=== PATIENT | male | born 1945 | race Two or more races ===

== ENCOUNTER 2017-03-27 16:57 | Observation (INO) | payer SELFPAY ==
[~2017-03-27] VITALS: Ht 152.4 cm; Wt 54.4 kg
[2017-03-27] MEDS ORDERED: SODIUM CHLORIDE 0.9% 1,000 ML IVB ONE (17:27)
[2017-03-27 18:41] LABS: Basophils # (auto) 0.1 uL; Basophils % (auto) 1.1 % (0.0-2.0); Eosinophils # (auto) 0 uL; Hematocrit 29.9 % (41.0-53.0); Hemoglobin 10.2 g/dL (13.5-17.5); Lymphocytes # (auto) 1.4 uL; Lymphocytes % (auto) 19.1 % (10.0-50.0); Mean Corpuscular Hemoglobin 33.1 pg (28.0-32.0); Mean Corpuscular Hgb Conc. 34.3 g/dL (32.0-36.0); Mean Corpuscular Volume 96.6 fL (80.0-100.0); Monocytes # (auto) 0.6 uL; Monocytes % (auto) 7.4 % (0.0-12.0); Neutrophils # (auto) 5.5 uL; Neutrophils % (auto) 72.4 % (37.0-80.0); Platelet Count (auto) 282 10^3/uL (140-450); Red Blood Cells 3.09 10^6/uL (4.5-5.90); White Blood Cell 7.6 10^3/uL (4.4-10.8)
[2017-03-27 19:01] LABS: Alanine Aminotransferase 14 U/L (16-61); Albumin 2.8 g/dL (3.4-5.0); Alkaline Phosphatase 122 U/L (45-117); Anion Gap 9 (5-15); Aspartate Aminotransferase 15 U/L (15-37); BUN/Creatinine Ratio 17.4; Bilirubin, Total 0.2 mg/dL (0.2-1.0); Blood Alcohol < 3.0 mg/dL (0-5); Blood Urea Nitrogen 26 mg/dL (7-18); Calcium 8.9 mg/dL (8.5-10.1); Carbon Dioxide 21 mmol/L (21-32); Chloride 110 mmol/L (98-107); GFR African American 59 mL/min; GFR Non-African American 49 mL/min; Glucose 175 mg/dL (74-106); Magnesium 1.7 mg/dL (1.6-2.6); Partial Thromboplastin Time 29.3 sec (22.64-33.71); Potassium 5.1 mmol/L (3.5-5.1); Prothrombin Time 10.9 sec (9.37-12.3); Sodium 140 mmol/L (136-145); Total Protein 6.1 g/dL (6.4-8.2)
[2017-03-27] MEDS ORDERED: BACITRACIN-POLYMYXIN B TOPICAL OINT UD TOP ONE ×2 (19:58→20:30)
[2017-03-27 20:03] VITALS: BP 181/87
== END 2017-03-27 20:22 | disposition home or self-care (01) | DRG 125 ==
LOC: ER 17:04 → OVERFLOW 17:31 → ER 20:22
PROVIDERS: ADMIT Family Medicine; ATTEND Family Medicine
DX: S05.11XA Contusion of eyeball and orbital tissues, right eye, initial encounter (principal); D64.9 Anemia, unspecified; W19.XXXA Unspecified fall, initial encounter; Y93.89 Activity, other specified; Y92.89 Other specified places as the place of occurrence of the external cause; Y99.8 Other external cause status
CPT/HCPCS: 36415; 70450; 70486; 71020; 80053; 80320; 82962; 83735; 84484; 85025; 85379; 85610; 85730; 93005; 96360; 99285; G0378; J7030